=== PATIENT | male | born 1985 | race Caucasian/White ===

== ENCOUNTER 2024-10-21 05:26 | Day surgery (SDC) | payer OTHER, SELFPAY ==
[2024-10-21] VITALS (13 sets, daily range): BP systolic 102–159; BP diastolic 62–99; BMI 26.8; BMI 26.4
--- NOTE | 2024-10-21 01:52 | ED.GENMED ---
History of Present Illness
General
Chief Complaint: Abdominal Pain
Source: patient
Exam Limitations: none
Time Seen by Provider: 10/21/24 01:36
Nursing documentation reviewed up to this point in time: agreed with
History of Present Illness
History of Present Illness:
Patient presents to ED secondary to persistent right-sided abdominal pain, along with multiple vomiting episodes, shortly after having cheese steak for dinner this evening. Abdominal pain described as sharp, with radiation to the back, without any
alleviating or exacerbate factors. Denies difficulty with urination. Denies trauma. Denies fever or chills. Denies diarrhea. Denies recent illness. Patient states that he has similar episode 2 weeks ago, which resolved spontaneously. Patient
otherwise is healthy, without any significant medical history nor any surgical history.
Review of Systems
Review of Systems
Allergies reviewed?: Yes
All Other Systems: ROS reviewed and negative except as documented in HPI and ROS
Constitutional: Reports no symptoms; Denies fever
ABD/GI: Reports abdominal pain, nausea and vomiting; Denies diarrhea
: Reports no symptoms
Musculoskeletal: Reports no symptoms
Skin: Reports no symptoms
Neurological: Reports no symptoms
Phy Exam
Physical Exam
Physical Exam:
Physical Exam
General: mild painful distress, not acutely ill. afebrile
Head: nc/at. eomi
Neck: supple. normal range of motion.
Heart: s1/s2 regular rate and rhythm, no murmur.
Lungs: no acute respiratory distress. clear bilaterally
Abdomen: normal bowel sounds. moderate RUQ/epigastric tenderness to palpation
Neuro: alert and oriented x 3. no focal neurological deficits
Skin: no rash
Psychiatric: well kept. interactive and cooperative
Extremities: no edema. no calf tenderness.
Course
Orders/Labs/Results
Orders:
Orders
10/21/24 01:46
Ketorolac [Toradol] 15 mg IV NOW STA
Pantoprazole [Protonix IV] 40 mg IV NOW STA
10/21/24 01:51
0.9% Sodium Chloride 1000 ml [Nss] 1,000 ml IV BOLUS
Ondansetron Injectable [Zofran] 4 mg IV NOW STA
US Abdomen Complete/Upper Urgent
Comment:
Reason For Exam: RUQ pain
10/21/24 02:01
Complete Blood Count/With Diff Urgent
Comprehensive Metabolic Panel Urgent
Lipase Urgent
10/21/24 02:11
Urinalysis Reflex To Culture Urgent
Date Specimen was Collected: 10/21/24
Time Specimen was Collected: 02:11
10/21/24 05:00
Flush (0.9% Sodium Chloride) [Flush (Nss)] See Dose Instructions IV PER PROTOCOL
10/21/24 05:01
Admit/Transfer Patient As Directed
Co-Sign Provider:
Level of Care: Inpatient admission
Assign to:: Medical/Surgical
Physician / Group: Dr. Lundberg, General Surgery
Diagnosis: Acute cholecystitis
Reason for Hospitalization: IV antibiotics, possible OR
Expected length of stay greater than two midnights?: Yes
ELOS- Estimated Length of Stay in days: 2
I certify the patient meets the requirements for IP care: Yes
PRN Pain Medication Management As Directed
May give lesser potent ordered pain med per pt: Yes
preference::
Protocol:: Medication orders for pain may be administered in a
manner that supports deferring to patient preference
when the pt is:
- Requesting an ordered lesser potent pain medication.
Least to most potent pain medications are defined
as: acetaminophen < NSAID < tramadol < opioids
(morphine, oxycodone, hydromorphone).
- Requesting a lesser dose of the same medication IF
ORDERED.
- Requesting a less intrusive route of administration
if both routes are prescribed by the provider (PO <
IV).
10/21/24 05:03
Code Status As Directed
Resuscitation Status: Full Code
10/21/24 Breakfast
NPO
Allow oral meds: No
Allow clear liquids: No
NPO with Ice Chips: Yes
10/21/24 06:45
0.9% Sodium Chloride 1000 ml [Nss] 1,000 ml IV 80 mls/hr
Acetaminophen 1000MG/100Ml [Ofirmev] 1,000 mg in 100 ml IV Q6HPRN
Acetaminophen IV Indication:: Targeted Temp Management
Ondansetron Injectable [Zofran] 4 mg IV Q6HPRN PRN
Piperacillin/Tazo 4.5 Gram [Zosyn] 4.5 gram in 100 ml IV NOW
10/21/24 06:45
Activity As Directed
Activity Level: As Tolerated
Anti-embolism (SERGIO) Hose As Directed
Type: Thigh high
Intake/ Output As Directed
Frequency: Per unit guidelines
Pneumatic Compression Sleeves As Directed
Type: Thigh high
Vital Signs As Directed
Frequency: Per unit guidelines
Weight As Directed
Frequency: Once
O2 Therapy [RESP] Routine
Titrate/Wean O2 to maintain O2 sat greater than (%): 92
Rx Incentive Spirometry [RESP] Routine
Frequency: q1h while awake
# of times per hour: 10
DX Deep Vein Thrombosis Video Routine
Abnormal Lab Results
10/21/24
02:01
WBC 16.2 H 10^3/uL
(4.8-10.8)
RBC 4.58 L 10^6/uL
(4.70-6.10)
MPV 10.7 H fL
(7.4-10.4)
Abs Immat Gran (auto) 0.1 H 10^3/uL
(0-0.05)
Absolute Neuts (auto) 13.1 H 10^3/uL
(1.4-6.5)
Absolute Monos (auto) 0.9 H 10^3/uL
(0.1-0.6)
Immature Gran % 0.8 H %
(0-0.5)
Neutrophils % 80.8 H %
(42.2-75.2)
Lymphocytes % 12.1 L %
(20.5-51.1)
Glucose 133 H mg/dl
(70-99)
Lipase 330 H U/L
(23-300)
10/21/24 02:01
10/21/24 02:01
Vital Signs
Initial and Last Documented VS:
Initial Vital Signs
Temp Pulse Resp BP Pulse Ox
97.6 F 54 26 156/90 100
10/21/24 01:32 10/21/24 01:32 10/21/24 01:32 10/21/24 01:32 10/21/24 01:32
Last Documented Vital Signs
Temp Pulse Resp BP Pulse Ox
97.7 F 69 18 111/77 99
10/21/24 12:12 10/21/24 12:12 10/21/24 12:12 10/21/24 12:12 10/21/24 12:12
MDM/Problems Addressed
MDM/Problems Addressed:
History, exam, and abdominal ultrasound consistent with acute cholecystitis. Patient will be started on Zosyn and admitted for further evaluation and treatment.
(surgery) notified via [employer]. Agrees to admit patient
*Critical Care Note
Total Time (30-74mins, 75-104mins- exclusive of procedures): Not Applicable
ED Attending Note
-
Portions of this chart may have been created with voice recognition software.� Occasional wrong word or��sound alike� substitutions may have occurred due to the inherent limitations of voice recognition software.
Discharge Plan
Departure
Patient Disposition: Admit
Date of Disposition: 10/21/24
Time of Disposition: 04:11
Admit to: Med/Surg
Presentation/result/management discussed w/ accepting MD/DO:
Discharge Problem:
Acute cholecystitis
Interventions
Interventions:
*Risk Screen - Suicide Last Done: 10/21/24 01:32
*General Assessment Last Done: 10/21/24 02:00
*Neglect/Abuse Screening Last Done: 10/21/24 01:32
*ED- Fall Risk Assessment Last Done: 10/21/24 02:17
*ED COVID-19 Vaccine History Last Done: 10/21/24 12:25
*Nursing Disposition Last Done: 10/21/24 12:40
YJ-Errrej-Duybtvyhaa Assessment Last Done: 10/21/24 02:17
Discharge Date and Time
Discharge Date/Time: 10/21/24 12:41
[2024-10-21] MEDS: NSS 1000 IV ×3 (02:06→21:34)
[2024-10-21] MEDS: ZOFRAN 4 MG IV ×2 (02:07→20:19)
[2024-10-21] MEDS: PROTONIX IV 40 MG IV (02:08)
[2024-10-21] MEDS: TORADOL 15 MG IV (02:10)
[2024-10-21 02:18] LABS: Urine Albumin Negative (Neg - Trace); Urine Bilirubin Negative (Negative); Urine Character Slightly Cloudy (Clear); Urine Color Yellow; Urine Glucose Negative (Negative); Urine Ketone Negative (Negative); Urine Leukocyte Negative (Negative); Urine Nitrite Negative (Negative); Urine Occult Blood Negative (Negative); Urine Specific Gravity 1.015 (<1.030); Urine Urobilinogen Negative (Neg - 1+)
[2024-10-21 02:20] LABS: % Basophils 0.3 % (0-2); % Eosinophils 0.4 % (0-6); % Immature Granulocytes 0.8 % (0-0.5); % Lymphocytes 12.1 % (20.5-51.1); % Monocytes 5.6 % (1.7-9.3); % Neutrophils 80.8 % (42.2-75.2); Absolute Basophils 0.1 10^3/uL (0-0.2); Absolute Eosinophils 0.1 10^3/uL (0-0.7); Absolute Immature Granulocytes 0.1 10^3/uL (0-0.05); Absolute Monocytes 0.9 10^3/uL (0.1-0.6); Absolute Neutrophils 13.1 10^3/uL (1.4-6.5); Hematocrit 39.6 % (39.0-52.0); Mean Corp Hgb Conc. 35.4 g/dL (33.0-37.0); Mean Corpuscular Hgb 30.6 pg (27.0-31.0); Mean Corpuscular Volume 86.5 fL (80.0-94.0); Mean Platelet Volume 10.7 fL (7.4-10.4); Nucleated Red Blood Cells % 0 % (-); Platelet Count 334 10^3/uL (130-400); Red Blood Cell Count 4.58 10^6/uL (4.70-6.10); Red Cell Dist. Width 12.6 % (11.5-14.5); White Blood Cell Count 16.2 10^3/uL (4.8-10.8)
--- NOTE | 2024-10-21 02:20 | EDRN ---
Pt says shortly after eating cheesesteak for dinner, he developed R side abdominal pain and got 'very bloated.' Pt then vomited and the bloating resolved. This happened an additional two times. Pt says it is the third time in the past month he
has had pain like this but the previous two times it went away on its own and he did not need to seek medical treatment. Pt admits to not eating well in general stating 'I'm a glutton.' Pt says only thing that relieves some of the pain is if he
sits up. Pt denies cp, sob, diarrhea/constipation, urinary symptoms, fever/chills/cough.
[2024-10-21 02:31] LABS: ALT (SGPT) 30 U/L (0-50); AST (SGOT) 26 U/L (17-59); Albumin 4.5 g/dl (3.5-5.0); Alkaline Phosphatase 52 U/L (38-126); Blood Urea Nitrogen 15 mg/dl (9-20); Carbon Dioxide 26 mmol/L (22-30); Chloride 105 mmol/L (98-107); Estimated Creatinine Clearance 122 ml/min; Glucose 133 mg/dl (70-99); Lipase 330 U/L (23-300); Potassium 3.7 mmol/L (3.5-5.1); Sodium 141 mmol/L (135-145); Total Bilirubin 0.6 mg/dl (0.2-1.3); eGFR > 60.00
--- NOTE | 2024-10-21 05:21 | HPS.HSE ---
Addendum entered and electronically signed by Vinay Rodríguez MD 10/21/24 11:12:
Patient also noted to have an umbilical hernia on exam, we will repair this as well during this procedure.
Addendum entered and electronically signed by Vinay Rodríguez MD 10/21/24 11:07:
I saw and examined the patient independently.
The Planning Management It Specialist's note was reviewed and I agree with the note, assessment and plan except where noted below.
Comment: This is a 39-year-old male who presents with a 1 day history of postprandial right upper quadrant pain in the setting of several months of similar attacks. Exam, imaging, blood work all consistent with acute cholecystitis. He does have a
history of narcotic abuse. He understands that we will be administering narcotics here in the hospital but we will not send him home with any.
Will plan for a laparoscopic cholecystectomy in the OR today.
N.p.o., IV fluids, IV antibiotics ordered.
Risks/Benefits/Alternatives, expected postoperative course and possible complications (bleeding, infection, injury to surrounding structures, acute/chronic pain) discussed at length. Patient wishes to proceed with surgery. All questions answered.
Consent obtained.
I spent 75 minutes in total for the care of this patient today including direct patient care and counseling, reviewing labs, imaging, coordination of care, as well as documentation.
Original Note:
Family Physician
-
Family Physician: Jason Velazquez
Chief Complaint
-
Abdominal pain
History of Present Illness
Patient is a 39 year old male with no significant past medical history, is a recovering addict since 2012, who presents to the emergency department with persistent right sided abdominal pain, along with multiple vomiting episodes, shortly after
having a cheese steak for dinner this evening. On arrival to the emergency department, right sided abdominal pain described as sharp, with radiation to the back, without any alleviating or exacerbate factors. Patient states this is the third and
worst episode of this type of pain with nausea/vomiting in the past month. The two previous episode resolved spontaneously. Patient denies difficulty with urination. Denies trauma. Denies fevers, chills, diarrhea. Denies recent illness.
In the emergency department, labs notable for leukocytosis, WBC 16.2. Patient received 1L NSS bolus, Toradol, Protonix, Zofran in the emergency department.
Abdominal ultrasound consistent with acute cholecystitis.
The Emergency provider discussed the case with General Surgery, Dr. Lundberg, who accepted the patient to his surgical service. Plan to admit to General Surgery service. Patient NPO for possible OR. Patient started on Zosyn.
Medical History
Past Medical History
Past Medical History: Reports Other (In recovery since 2012)
Additional Past Medical History:
Patient in recovery from narcotics since 2012
Past Surgical History: Reports Orthopedic (Hand fracture, 2000) and Other (Carmi teeth 2001)
Social History
Tobacco: Vaping
Alcohol: Occasional (approx 2 drinks a month)
Drug: Former User (in recovery since 2012)
Personal:
Living: With Family
Employment: Employed
Family History
Family History: Not pertinent
Allergies / Home Medications
Allergies reflects when Allergies were last updated in [employer].
Home Medications with original date entered in [employer]
Allergy/Medication List:
Patient Allergies
Allergy/AdvReac Type Severity Reaction Status Date / Time
Peaches Allergy Rash Uncoded 10/21/24 02:09
Home Medications
�Medication �Instructions �Recorded
No Meds [No Current Medications] 10/21/24
Review of Systems
-
History Source: Patient
A 12 point ROS was completed and negative except as noted: Yes
Constitutional: Reports No Symptoms; Denies Fever
EENT: Reports No Symptoms
Respiratory: Reports No Symptoms
Cardiac: Reports No Symptoms
Abdomen/GI: Reports Abdominal Pain (right upper quadrant pain), Nausea and Vomiting
: Reports No Symptoms
Musculoskeletal: Reports No Symptoms
Skin: Reports No Symptoms
Neurological: Reports No Symptoms
Psych: Reports No Symptoms
Physical Exam
Vital Signs
Vital Signs
Temp Pulse Resp BP Pulse Ox
97.6 F 72 18 102/68 97
10/21/24 01:32 10/21/24 03:36 10/21/24 03:36 10/21/24 03:36 10/21/24 03:36
Physical Exam
General: Well Nourished, No Apparent Distress, Comfortable and Conversant
HEENT: Moist mucous membranes and PERRLA
Respiratory: Clear and Non Labored Respirations
Cardiac: S1/S2 and Regular Rhythm; No Murmur
GI: Soft and Tender (right upper quadrant tender to palpation)
Musculoskeletal: No Edema
Skin: Warm and Dry
Neuro: Awake and AO x 3
Psych: Calm and Intact Judgment/Insight
Laboratory Results
-
10/21/24 02:01
10/21/24 02:01
Laboratory Results
Total Bilirubin 0.6 mg/dl (0.2-1.3) 10/21/24 02:01
AST 26 U/L (17-59) 10/21/24 02:01
ALT 30 U/L (0-50) 10/21/24 02:01
Alkaline Phosphatase 52 U/L (38-126) 10/21/24 02:01
Lipase 330 U/L (23-300) H 10/21/24 02:01
Data Reviewed
-
Ultrasound: Report Reviewed by me
Lab Data: Labs Reviewed by me
Impression/Plan
-
IMPRESSION:
Patient is a 39 year old male with no significant past medical history, is a recovering addict since 2012, who presents to the emergency department with persistent right sided abdominal pain, along with multiple vomiting episodes.
PLAN:
Acute Cholecystitis
- Admitted to General Surgery, Dr. Lundberg accepting for further evaluation and treatment.
- Abdominal ultrasound consistent with acute cholecystitis
- NPO, IV fluids ordered
- IV antibiotics ordered, Zosyn
- Pain control (pt requested limited use of narcotic pain medications as he has been in recovery since 2012).
NOTE: Pt is agreeable to take limited narcotic pain medications as needed while inpatient but requests that no narcotic pain medications be ordered for discharge.
- Antiemetics as needed.
- Follow for any new/worsening symptoms.
DVT prophylaxis: SCD's
Code status: Full code
[2024-10-21] MEDS: ZOSYN 100 IV (07:11)
--- NOTE | 2024-10-21 11:11 | W.SUR.PREOP ---
Pre-Operative Surgical Note
-
I have examined this patient prior to the performance of the scheduled procedure.
The patient's condition is unchanged from the time of the current History and
Physical and the patient is able to undergo the scheduled procedure.
--- NOTE | 2024-10-21 15:26 | CM ---
Attempted to see patient, off floor for Lap Kenisha.
--- NOTE | 2024-10-21 16:17 | W.IMMPOSTOP ---
Surgical Immed Post Op Note
-
Primary Surgeon: Vinay Rodríguez MD
Assisting Surgeon: None
Pre-op Diagnosis: Acute cholecystitis, umbilical hernia
Post-op Diagnosis: Same
Procedure Performed:
1. Laparoscopic cholecystectomy with cholangiogram
2. Primary open umbilical hernia repair
Anesthesia Type: General
Specimen / Cultures: Gallbladder and contents
Estimated Blood Loss: 3 cc
Complications: None
Operative Findings: Mildly inflamed gallbladder, critical view of safety obtained prior to a cholangiogram which demonstrated normal biliary anatomy and no distal filling defects. The duct was ligated with a clip followed by 0 PDS Endoloop. The
patient was also noted to have a 2 cm umbilical hernia containing preperitoneal fat. This was closed primarily after reduction of the hernia sac with 2 [id number] 0 PDS sutures.
POST OP PLAN:
Imaging: None
Labs: Routine AM
Diet: Advance to Regular as tolerated
Analgesia: Tylenol 650mg q6 Mari, Miguelina 5mg q6 PRN, Dilaudid 0.5mg q2h PRN
Neuro/vascular checks: q4h
AC/AP: Hold Therapeutic AC, Ok for DVT PPx
Activity: Ad Lindsey
Wound/Incisions/Drains: Routine
Abx: Will continue antibiotics until discharge
Dispo: RNF, anticipate discharge home tomorrow.
--- NOTE | 2024-10-21 16:23 | OR.RPT ---
Operative Report
Operative Report
Patient Name: Drew Seten
: 1985
Date of Operation: 10/21/2024
Preoperative Diagnosis: Acute cholecystitis, umbilical hernia
Postoperative Diagnosis: Same
Procedure(s):
1. Laparoscopic Cholecystectomy with Cholangiogram
2. Open primary umbilical hernia repair
Surgeon(s):
Dr. Rodríguez
Librarian Helper(s):
AARON Waggoner
Anesthesia: General
Estimated Blood Loss: 3 cc
Urine Output: None
Drains/Lines/Implants: None
Specimens:
1. Gallbladder and contents
HPI/Surgical Indications:
This is a 39-year-old male who presents with 1 day of postprandial right upper quadrant abdominal pain, in the setting of similar episodes over the past few months. Exam, labs and imaging are consistent with early acute cholecystitis, as well as an
umbilical hernia. Risks/Benefits/Alternatives were discussed at length, and the patient agreed to proceed with surgery.
Operative Findings: Mildly inflamed gallbladder, critical view of safety obtained prior to a cholangiogram which demonstrated normal biliary anatomy and no distal filling defects. The duct was ligated with a clip followed by 0 PDS Endoloop. The
patient was also noted to have a 2 cm umbilical hernia containing preperitoneal fat. This was closed primarily after reduction of the hernia sac with 2 [id number] 0 PDS sutures.
Procedure Description:
The patient was brought to the Operating Room and placed in the supine position with one arm tucked. Following uneventful induction of general endotracheal anesthesia, an orogastric tube was placed. The abdomen was prepped and draped in the usual
sterile fashion. A timeout was performed confirming the procedure, consent, and that IV antibiotics were infused and sequential compression devices were confirmed to be on. We began by making an infraumbilical incision and carefully dissecting the
hernia sac off of the overlying umbilical stalk. The sac was opened and noted to have preperitoneal fat which was truncated to the level of the fascial defect which measured roughly 2 cm. The abdomen was entered using a 12 mm balloon-tipped trocar
to ensure we did not lose pneumoperitoneum. Pneumoperitoneum to 15 mmHg pressure was obtained without difficulty and we confirmed that no injury had occurred during our entry. The patient was positioned in reverse Trendelenberg and rotated with the
right side up slightly. Three (3) 5mm trocars were then placed along the right subcostal margin. A locking grasping forceps was placed on the fundus of the gallbladder where it was then retracted cephalad and to the right. Using appropriate
grasping instruments, the peritoneum overlying the triangle of Calot which was mildly inflamed was incised and extended superiorly on both the anterior and posterior gallbladder brown. The infundibulum was dissected off the cystic plate. The cystic
triangle was dissected until a critical view of safety was achieved. The cystic artery was medialized, dissected and controlled with 2 proximal clips and 1 distal. The cystic duct/gallbladder junction in turn was identified, dissected
circumferentially and a clip was placed. A ductotomy was made and a cholangiocatheter on an Jacinto clamp was inserted into the cystic duct. A C-arm was draped and brought into the field. An intra-operative cholangiogram was performed and was noted to
have:
No filling defects in the biliary tree
No significant biliary dilation
Brisk flow of contrast into the duodenum
Normal biliary anatomy
The catheter was then removed and the cystic duct was controlled with a clip followed by a 0 PDS Endoloop. After ensuring both the artery and duct were divided, the gallbladder was freed from the liver using electrocautery. There was no spillage
of bile or stones. The gallbladder bed was inspected and excellent hemostasis was obtained. The gallbladder was extracted through the 12 mm trocar site using an endocatch bag. The abdomen was again irrigated and excellent hemostasis was assured.
All remaining trocars were then removed and the pneumoperitoneum was evacuated. We then turned our attention to fixing the umbilical hernia defect which measured roughly 2 cm. This was fixed with 2 interrupted [id number] 0 PDS sutures. All
trocar sites were closed at the skin level using 4-0 Monocryl followed by Dermabond. Overall, the patient tolerated the procedure well and was taken to the Recovery Room postoperatively in stable condition.
I was the attending physician and performed the procedure with assistance from the COTTON PICKING MACHINE OPERATOR above. I was present for all portions of the case, excluding skin closure.
Vinay Rodríguez MD
[2024-10-21] MEDS: DILAUDID 0.5 MG IV (16:45)
--- NOTE | 2024-10-21 17:42 | PTCARENOTE ---
patient brought from PACU. AAOx3, drowsy, pain 07/29. 4 abd lap sites CORE STRIPPER with surgi glue. SCDs on. patient voided without difficulty. reg diet order noted. family notified.
[2024-10-21] MEDS: OFIRMEV 100 IV (21:33)
[2024-10-22 03:04] VITALS: BP 155/81
[2024-10-22] MEDS: OFIRMEV 100 IV (03:17)
[2024-10-22 07:58] VITALS: BP 150/89
[2024-10-22 08:32] LABS: % Basophils 0.3 % (0-2); % Immature Granulocytes 0.7 % (0-0.5); % Lymphocytes 12.2 % (20.5-51.1); % Monocytes 8.9 % (1.7-9.3); % Neutrophils 77.9 % (42.2-75.2); Absolute Immature Granulocytes 0.1 10^3/uL (0-0.05); Absolute Lymphocytes 1.9 10^3/uL (1.2-3.4); Absolute Monocytes 1.4 10^3/uL (0.1-0.6); Absolute Neutrophils 12.2 10^3/uL (1.4-6.5); Hematocrit 42.7 % (39.0-52.0); Hemoglobin 14.5 g/dL (13.0-18.0); Mean Corpuscular Hgb 30.5 pg (27.0-31.0); Mean Corpuscular Volume 89.9 fL (80.0-94.0); Mean Platelet Volume 11.1 fL (7.4-10.4); Nucleated Red Blood Cells % 0 % (-); Platelet Count 347 10^3/uL (130-400); Red Blood Cell Count 4.75 10^6/uL (4.70-6.10); Red Cell Dist. Width 12.6 % (11.5-14.5); White Blood Cell Count 15.6 10^3/uL (4.8-10.8)
[2024-10-22 08:55] LABS: ALT (SGPT) 53 U/L (0-50); AST (SGOT) 31 U/L (17-59); Albumin 4.4 g/dl (3.5-5.0); Alkaline Phosphatase 51 U/L (38-126); Blood Urea Nitrogen 8 mg/dl (9-20); Calcium 9.6 mg/dl (8.4-10.2); Carbon Dioxide 29 mmol/L (22-30); Chloride 101 mmol/L (98-107); Estimated Creatinine Clearance > 125 ml/min; Glucose 101 mg/dl (70-99); Potassium 4.4 mmol/L (3.5-5.1); Sodium 140 mmol/L (135-145); eGFR > 60.00
--- NOTE | 2024-10-22 09:51 | W.PN.GS2 ---
Today's Communication / Plan
-
Dispo planning
Assessment / Plan
-
This is a 39-year-old male postoperative day 1 from a laparoscopic cholecystectomy and open primary umbilical hernia repair for cholecystitis. Doing well, expected postoperative course.
DC home today.
Time Spent
Total Time Spent with Patient (in minutes): 20
Subjective Data
-
Date of Service: October 22, 2024
Interval Events:
No acute events overnight. Slept well. Pain Controlled. Denies Nausea/Vomiting, +bowel function. Tolerating diet.
Objective Data
-
Intake and Output
10/21/24 10/22/24 10/23/24
06:59 06:59 06:59
Intake Total 2260 / 2260
Output Total 650 / 650
Balance 1610 / 1610
Intake:
Oral fluids 1200 / 1200
IV fluids (Total) 1060 / 1060
Normosol 100 / 100
Output:
Urine, Voided 650 / 650
Other:
Number of approximated MODERATE 1
amounts of urine
Vital Signs
Temp Pulse Resp BP Pulse Ox
98.1 F 43 17 150/89 97
10/22/24 07:58 10/22/24 07:58 10/22/24 07:58 10/22/24 07:58 10/22/24 07:58
Lab Results
10/22/24 07:46
10/22/24 07:46
Calcium 9.6 mg/dl (8.4-10.2) 10/22/24 07:46
Total Bilirubin 1.0 mg/dl (0.2-1.3) 10/22/24 07:46
AST 31 U/L (17-59) 10/22/24 07:46
ALT 53 U/L (0-50) H 10/22/24 07:46
Alkaline Phosphatase 51 U/L (38-126) 10/22/24 07:46
Total Protein 7.0 g/dl (6.3-8.2) 10/22/24 07:46
Albumin 4.4 g/dl (3.5-5.0) 10/22/24 07:46
Physical Exam
-
GENERAL/NEURO: Awake, Alert, no distress
CHEST: Unlabored breathing on RA
ABDOMEN: Soft, Non-Tender, Non-Distended, incisions clean dry and intact. Some phong-incisional umbilical bruising noted.
Patient has a garcia catheter: No
Patient has a central line: No
--- NOTE | 2024-10-22 10:13 | CM ---
Alert awake oriented patient who lives with his Gracy in a 2 story home with 5 step to enter and bed and bathroom on first floor. He is independent in driving and in all activities of daily living.He was offered VN he declined need.His
will drive him home. He agrees with dc today.
Pt notified MD he wants no narcotics due to his history with drug addition.
No VN hx / No SNF history
Pharmacy [facility]
PCP DR Velazquez
PLAN Home Declined VN
[2024-10-22 11:26] VITALS: BP 136/84
== END 2024-10-22 11:32 | disposition home or self-care (01) ==
LOC: PACU 05:26
PROVIDERS: Surgery; ATTENDING PHYSICIAN Surgery; EMERGENCY PHYSICIAN Emergency Medicine; FAMILY PHYSICIAN Family Medicine
DX: K80.12 Calculus of gallbladder with acute and chronic cholecystitis without obstruction (principal); K42.9 Umbilical hernia without obstruction or gangrene
CPT/HCPCS: 47563; 49591; 88304; 74300; 76000; 76700; 80053; 81003; 83690; 85025; 96361; 96374; 96375; 99285; A4300